=== PATIENT | male | born 1950 | race Caucasian/White ===

== ENCOUNTER 2025-03-30 14:12 | Emergency (ER) | payer OTHER ==
[~2025-03-30] VITALS: Ht 185.4 cm; Wt 48.1 kg
[2025-03-30] MEDS ORDERED: SODIUM CHLORIDE 0.9% 1,000 ML IV ONE ×3 (15:15→21:10)
[2025-03-30] MEDS ORDERED: Ondansetron Hydrochloride 4 MG/2 ML VIAL IV ONE (15:20)
[2025-03-30] MEDS ORDERED: DIATRIZOATE MEG/DIATRIZO. SOD 120 ML BOT PO ONE (15:25)
[2025-03-30] MEDS ORDERED: DIATRIZOATE MEG/DIATRIZO. SOD 120 ML BOT ONE (15:49)
[2025-03-30 16:19] LABS: BASO # 0.1 10*3/uL (0.0-0.1); BASO % 0.7 % (0.0-1.0); EOS # 0.0 10*3/uL (0.0-0.4); EOS % 0.1 % (1.0-4.0); MEAN CELL VOLUME 99.3 fl (80.0-94.0); MEAN CORPUSCULAR HGB 32.7 pg (27.0-31.0); MEAN PLATELET VOLUME 11.2 fl (9.6-12.3); MONO # 0.6 10*3/uL (0.1-1.0); MONO % 7.6 % (3.0-9.0); NEUT # 6.5 10*3/uL (2.3-7.9); NEUT % 86.4 % (47.0-73.0); NUCLEATED RED BLOOD CELL 0.0 % (0.0-0.0); NUCLEATED RED BLOOD CELL 0.0 10*3/uL (0.0-0.0); PLATELET COUNT AUTOMATED 120 10*3/uL (130-400); RED CELL DISTRI WIDTH 14.4 % (0-14.5)
[2025-03-30] MEDS ORDERED: IOHEXOL 300 MG/ML 100 ML VIAL IV ONE (16:20)
[2025-03-30 16:38] LABS: BUN 36 mg/dl (9-23); SGPT/ALT 104 U/L (5-49)
[2025-03-30 16:59] LABS: ACT PARTIAL THROMBO TIME 26.7 SECONDS (20.0-32.1)
[2025-03-30 21:03] LABS: BILIRUBIN Negative (Negative); BLOOD Negative (Negative); CLARITY Clear (Clear); COLOR Yellow (Yellow); KETONE Negative (Negative); LEUKO ESTERASE Negative (Negative); NITRITE Negative (Negative); SPECIFIC GRAVITY >= 1.030 (1.001-1.030); UROBILINOGEN 1.0 E.U./dl (0.0-1.0)
[2025-03-30 21:15] LABS: PH 8.5 (4.5-8.0)
[2025-03-30 21:19] LABS: BACTERIA 2+; RBC 0-2 rbc/hpf (0-2)
== END 2025-03-30 21:37 | disposition short-term general hospital (02) ==
LOC: ED 14:12
PROVIDERS: Internal Medicine
DX: R11.2 Nausea with vomiting, unspecified (principal); N17.9 Acute kidney failure, unspecified; E87.29 Other acidosis; D53.9 Nutritional anemia, unspecified; R74.01 Elevation of levels of liver transaminase levels; R10.9 Unspecified abdominal pain